=== PATIENT | male | born 1965 | race Asian ===

== ENCOUNTER 2022-12-26 10:04 | Day surgery (SDC) | payer OTHER ==
[~2022-12-26] VITALS: Ht 180.3 cm; Wt 113.4 kg
[2022-12-26] MEDS ORDERED: DESFLURANE 15 MIN GAS INH ONE (12:00)
[2022-12-26] MEDS ORDERED: MUPIROCIN 2% TOPICAL OINTMENT 22 GM ONE (12:00)
[2022-12-26] MEDS ORDERED: SUGAMMADEX SODIUM 200 MG/2 ML VIAL IV ONE (12:00)
[2022-12-26] MEDS ORDERED: EPINEPHrine HCL 1 MG/ML VIAL ONE (12:00)
[2022-12-26] MEDS ORDERED: fentaNYL CITRATE/PF 100 MCG/2 ML AMP ONE (12:00)
[2022-12-26] MEDS ORDERED: WATER FOR IRRIGATION,STERILE 1,000 ML IRRIG.SOLN IR ONE (12:00)
[2022-12-26] MEDS ORDERED: MIDAZOLAM HCL 2 MG/2 ML VIAL (VERSED) ONE (12:00)
[2022-12-26] MEDS ORDERED: PROPOFOL 200MG/ 20ML VIAL (DIPRIVAN) IV ONE (12:00)
[2022-12-26] MEDS ORDERED: DEXAMETHASONE SOD PHOSPHATE 4 MG/ML VIAL ONE (12:00)
[2022-12-26] MEDS ORDERED: LIDOCAINE 2%, 20 ML MDV ONE (12:00)
[2022-12-26] MEDS ORDERED: NS IRRIG SOLN 1000 ML IR ONE (12:00)
[2022-12-26] MEDS ORDERED: ONDANSETRON HCL 4 MG/2 ML VIAL ONE (12:00)
[2022-12-26] MEDS ORDERED: LIDOCAINE/EPI 1% 1:100000 20 ML VIAL ONE (12:00)
[2022-12-26] MEDS ORDERED: OXYMETAZOLINE HCL 0.05% NASAL SPRAY NS ONE (12:00)
[2022-12-26] MEDS ORDERED: ROCURONIUM BROMIDE 10 MG/ML (ZEMURON) ONE (12:00)
[2022-12-26] MEDS ORDERED: LR 1,000 ML IV.SOLN IV ONE (12:00)
[2022-12-26] MEDS ORDERED: ACETAMINOPHEN I.V. 1000 MG 100 ML IV ONE (12:39)
[2022-12-26] MEDS ORDERED: LR 1,000 ML IV SCH (13:00)
[2022-12-26] MEDS ORDERED: METOCLOPRAMIDE HCL 10 MG/2 ML VIAL IVP PRN (13:00)
[2022-12-26] MEDS ORDERED: LABETALOL 100 MG/ 20ML VIAL IVP PRN (13:00)
[2022-12-26] MEDS ORDERED: MEPERIDINE HCL/PF 25 MG/ML DISP.SYRIN IVP PRN (13:00)
[2022-12-26] MEDS ORDERED: HYDROmorphone 1 MG/ML INJ. CARTRIDGE IVP PRN (13:00)
[2022-12-26] MEDS: HYDROmorphone 1 MG/ML INJ. CARTRIDGE IVP PRN ×2 (15:30→15:45)
[2022-12-26] MEDS ORDERED: HYDROmorphone 1 MG/ML INJ. CARTRIDGE ONE (15:31)
[2022-12-26] MEDS: hydrALAZINE HCL 20 MG/ML VIAL IVP PRN ×2 (16:12→17:00)
[2022-12-26] MEDS ORDERED: hydrALAZINE HCL 20 MG/ML VIAL ONE ×2 (16:13→16:51)
[2022-12-26] MEDS ORDERED: LABETALOL HCL 20 MG/4 ML CARTRIDGE IVP ONE (18:37)
[2022-12-29 13:59] VITALS: BP_SYST 141; PULSE 68; RESP 20; TEMP 97.5; O2SAT 96
== END 2022-12-26 20:49 | disposition home or self-care (01) ==
LOC: SDS 10:04 → SMU 10:08 → SDS 20:49
PROVIDERS: ATTEND Otolaryngology
DX: J34.2 Deviated nasal septum (principal); D38.5 Neoplasm of uncertain behavior of other respiratory organs; J32.0 Chronic maxillary sinusitis; J34.89 Other specified disorders of nose and nasal sinuses; I10 Essential (primary) hypertension; E78.5 Hyperlipidemia, unspecified; E66.9 Obesity, unspecified; J30.1 Allergic rhinitis due to pollen; D37.02 Neoplasm of uncertain behavior of tongue; Z68.36 Body mass index [BMI] 36.0-36.9, adult; Z79.899 Other long term (current) drug therapy
CPT/HCPCS: 31267; 30520; 88304; 88305; 88311; 30140; J3490; J1100; J0171; J0360; J2001; J3465; J2405; J2704; J3010; J1170; J7120; C1726; J0131